=== PATIENT | female | born 1985 | race Caucasian/White ===

== ENCOUNTER 2016-08-02 19:56 | Emergency (ER) | payer OTHER ==
--- NOTE | ~2016-08-02 | CT2 ---
[facility] A Service of [facility] RADIOLOGY TEXT RESULTS PATIENT: HERMINIO RAMSEY LOCATION: SED : 85 UNIT #: [id number] AGE: [address]: Preston Antonio MD SEX: F ORDER DR: [id number] [place] [id number] MR#: [id number] Acc #: [id number] NAME: HERMINIO RAMSEY. : 1985 SEX: F STUDY DATE/TIME: 08/02/2016 21:36 UNIT: SED ROOM: STUDY DESCRIPTION: CT Abd and Pelv W Cont Attending Physician: Preston Antonio M.D. Ordering Physician: Preston Antonio M.D. Primary Care Physician: Primary Care Physician No MEDICAL IMAGING REPORT This report is preliminary unless electronic signature is present. EXAM CT abdomen and pelvis with contrast, 08/02/2016 HISTORY 30-year-old female in the ED complaining of 1-day history of right-side abdomen pain and abdominal distension. TECHNIQUE CT examination of the abdomen and pelvis was performed with oral and IV contrast. This CT exam was performed with one or more of the following radiation dose reduction techniques: automatic exposure control, adjustment of mA and/or kV according to patient size, and iterative reconstruction. COMPARISON CT abdomen/pelvis, 07/20/2015. FINDINGS ABDOMEN: Liver, pancreas and spleen are normal in size and appearance. The gallbladder is nondistended, and there is no bile duct dilatation. Both kidneys are negative with no evidence of urinary obstruction. Moderately large volume stool within the right hemicolon. Small bowel and colon are otherwise normal in caliber and appearance. The appendix appears normal where visualized. The stomach is moderately distended with food, fluid and contrast material. PELVIS FINDINGS: Rectal prolapse is noted, but this is not as severe as on the prior study. Previous cystocele is not present today. No inguinal hernia or abdominal wall hernia. Limited lung base images show no active disease in the lower chest. [facility] A Service [facility] RADIOLOGY TEXT RESULTS PATIENT: HERMINIO RAMSEY [place] [facility] [place]IT #: [id number] AGE: [address]: Preston Antonio MD SEX: F ORDER DR: IMPRESSION 1. No acute abnormality is identified within the abdomen or pelvis. Visualized appendix is negative. 2. The stomach is moderately distended with food, fluid and contrast material. There is also a moderately large volume of stool in the right hemicolon. 3. Rectal prolapse is again noted, but rectal prolapse and cystocele present on the previous study of 07/20/2015 are not as severe today. The bladder is nondistended. No evidence of upper urinary tract obstruction. Dictated by... Kenton Oshea M.D. THIS IS AN ELECTRONICALLY VERIFIED REPORT Kenton Oshea M.D. at 08/03/2016 5:58 AM RENATO/iwona TD: 08/02/2016 23:16 JOB #: [id number] MEDICAL IMAGING REPORT Page 1 of 1
[~2016-08-02 19:56] MED LIST: ADVAIR 100-501 EAC1 IH; ADVAIR 2501 DISK W/D PO; ALBUTEROL MININEB NEB; ALBUTEROL17 G1 IH; ALBUTEROL17 GM INH; AUGMENTIN PO; ERYTHROMYCIN B500 MG PO; FLEXERIL10 MG PO; IBUPROFEN800 MG PO; MEDROL4 MG/DOSE- PO; NAPROSYN500 MG PO; NEURONTIN300 MG PO; NO MEDICATIONS; PHENERGAN25 M1 PO; PREDNISONE PO; SINGULAIR PO; SYMBICORT80 INH; TESSALON200 MG PO; ZITHROMAX PO; ZOFRAN ODT4 MG PO; ZYRTEC5 M1 PO
[2016-08-02 20:31] LABS: URINE SOURCE CLEAN CATCH
[2016-08-02 20:35] LABS: URINE APPEARANCE CLEAR; URINE BILIRUBIN NEG (NEG); URINE BLOOD NEG (NEG); URINE COLOR YELLOW; URINE GLUCOSE NEG (NORM); URINE KETONE TRACE (NEG); URINE LEUKOCYTE ESTERASE TRACE (NEG); URINE NITRATE NEG (NEG); URINE PH 5.5 (5-8); URINE PROTEIN TRACE (NEG); URINE SPECIFIC GRAVITY >=1.030 (1.003-1.035); URINE UROBILINOGEN 0.2 MG/DL (NORM)
[2016-08-02 20:39] LABS: BASOPHIL% 0.5 % (0-2.5); EOSINOPHIL# 0.7 X10e3 (0-0.7); EOSINOPHIL% 9.4 % (0.0-7.0); HEMOGLOBIN 14.9 gm/dL (12.0-16.0); LYMPHOCYTE# 1.1 X10e3 (1.0-3.5); LYMPHOCYTE% 13.7 % (17.0-45.0); MEAN CELL VOLUME 82.6 FL (83-96); MEAN CORPUSCULAR HGB CONC 33.9 g/dL (30-36); MEAN PLATELET VOLUME 8.8 FL (6.5-11.5); MONOCYTE# 0.4 X10e3 (0-1.0); NEUTROPHIL# 5.6 X10e3 (1.5-7.1); NEUTROPHIL% 71.4 % (40-75); PLATELET COUNT 283 X10e3 (140-420); RED BLOOD COUNT 5.32 X10e (3.90-5.30); RED CELL DISTRIBUTION WIDTH 14.9 % (11.0-15.5); WHITE BLOOD COUNT 7.8 X10e3 (4.0-10.5)
[2016-08-02 20:40] LABS: DIFF IND NO
[2016-08-02 20:44] LABS: AMPHETAMINE NEG (NEG); BARBITURATES NEG (NEG); BENZODIAZEPINES NEG (NEG); COCAINE NEG (NEG); MARIJUANA NEG (NEG); OPIATES NEG (NEG); TRICYCLIC ANTIDEPRESSANTS NEG (NEG); U METHADONE NEG (NEG)
[2016-08-02 20:58] LABS: ALBUMIN SERUM 3.7 g/dL (3.5-5.0); ALKALINE PHOSPHATASE 51 U/L (32-92); ALT (SGPT) 13 U/L (10-40); AMYLASE 27 U/L (0-46); AST (SGOT) 23 U/L (10-42); BILIRUBIN,TOTAL 0.3 mg/dL (0.2-2.0); BLOOD UREA NITROGEN 14 mg/dL (9-23); BUN/CREATININE RATIO 23.33; CALCIUM SERUM 8.6 mg/dL (8.4-10.2); CARBON DIOXIDE 27 mmol/L (22-31); CHLORIDE 103 mmol/L (100-111); CREATININE SERUM 0.6 mg/dL (0.6-1.4); GLOM FILT RATE Estimated 122.3 mL/min (>60); GLUCOSE FASTING 98 mg/dL (70-110); LIPASE 36 U/L (22-51); PROTEIN TOTAL SERUM 7.1 g/dL (6.0-8.3); SODIUM 137 mmol/L (135-145)
[2016-08-02 20:58] LABS: MICRO INDICATED? YES; URINE RBC 0-2 /[HPF] (0-2)
[2016-08-02 20:59] LABS: CULTURE INDICATED? YES; URINE BACTERIA NEG (NEG); URINE SQUAMOUS EPITHELIAL CELL MODERATE /[HPF]
[2016-08-02 21:00] LABS: BILIRUBIN, DIRECT <0.1 mg/dL (0.0-0.2); BILIRUBIN,INDIRECT 0.2 mg/dL (0.0-0.9)
== END 2016-08-02 22:50 | disposition home or self-care (01) ==
LOC: SED 19:56
PROVIDERS: Emergency Medicine
DX: R10.9 Unspecified abdominal pain (principal); R11.2 Nausea with vomiting, unspecified; G51.0 Bell's palsy
CPT/HCPCS: 36415; 74177; 80048; 80076; 80307; 81003; 82150; 83690; 84703; 85025; 87086; 96361; 96374; 96375; 99284; J2405; J2765; Q9967

== ENCOUNTER 2016-11-20 11:47 | Emergency (ER) | payer OTHER ==
[2016-11-20] MEDS ORDERED: ALBUTEROL17 GM (11:58)
== END 2016-11-20 12:55 | disposition home or self-care (01) ==
LOC: SED 11:47
DX: S50.862A Insect bite (nonvenomous) of left forearm, initial encounter (principal); J45.909 Unspecified asthma, uncomplicated; F17.210 Nicotine dependence, cigarettes, uncomplicated; Z88.1 Allergy status to other antibiotic agents; W57.XXXA Bitten or stung by nonvenomous insect and other nonvenomous arthropods, initial encounter
CPT/HCPCS: 99281